=== PATIENT | female | born 1995 | race Caucasian/White ===

== ENCOUNTER 2023-03-10 22:52 | Emergency (ER) | payer SELFPAY ==
[~2023-03-10] VITALS: Ht 167.6 cm; Wt 72.7 kg
[2023-03-10 23:11] VITALS: BP 109/64; PULSE 124; RESP 20; O2SAT 96
[2023-03-10] MEDS ORDERED: IBUPROFEN 800 MG TAB PO ONE (23:15)
[2023-03-10 23:21] VITALS: TEMP 101.5
[2023-03-10 23:57] LABS: Rapid Influenza B Negative (Negative)
[2023-03-10 23:57] LABS: COVID19 ANTIGEN SOFIA FIA NEGATIVE (NEGATIVE)
[2023-03-11] LABS: Rapid Influenza A Positive (Negative)
== END 2023-03-11 02:31 | disposition left against medical advice (07) ==
LOC: ER 22:52
DX: R50.9 Fever, unspecified (principal); R05.9 Cough, unspecified; M79.10 Myalgia, unspecified site; Z20.822 Contact with and (suspected) exposure to COVID-19; Z53.21 Procedure and treatment not carried out due to patient leaving prior to being seen by health care provider
CPT/HCPCS: 36415; 87426; 87804

== ENCOUNTER 2024-03-08 23:22 | Emergency (ER) | payer SELFPAY ==
[~2024-03-08] VITALS: Ht 165.1 cm; Wt 86.6 kg
--- NOTE | 2024-03-09 00:10 | ED.PDOC ---
Back pain HPI Chief Complaint: Foreign Body Time Seen by MD: 23:31 Reviewed Notes: Nurses Notes, Medications, Allergies Allergies: Coded Allergies: NO KNOWN ALLERGIES (Unverified , 07/29/09) Information Source: Patient Mode of Arrival: Ambulatory Past Medical History PAST MEDICAL HISTORY: Denies Surgical History: Denies all surgeries COMPOUND WORKER History: No Pertinent COMPOUND WORKER History Family History Family History: Reviewed,noncontributory to illness Social History Smoker: Non-Smoker Alcohol: Denies ETOH Use Drugs: Denies Drug Use Constitutional: denies: chills, diaphoresis, fatigue, fever, malaise, sweats, weakness, others EENTM: denies: blurred vision, double vision, ear bleeding, ear discharge, ear drainage, ear pain, ear ringing, eye pain, eye redness, hearing loss, mouth pain, mouth swelling, nasal discharge, nose bleeding, nose congestion, nose pain, photophobia, tearing, throat pain, throat swelling, voice changes, others Respiratory: denies: cough, hemoptysis, orthopnea, SOB at rest, shortness of breath, SOB with excertion, stridor, wheezing, others Cardiovascular: denies: chest pain, dizzy spells, diaphoresis, Dyspnea on exertion, edema, irregular heart beat, left arm pain, lightheadedness, palpitations, PND, syncope, others Gastrointestinal: denies: abdomen distended, abdominal pain, blood streaked bowels, constipated, diarrhea, dysphagia, difficulty swallowing, hematemesis, melena, nausea, poor appetite, poor fluid intake, rectal bleeding, rectal pain, vomiting, others Genitourinary: denies: abnormal vagina bleeding, burning, dyspareunia, dysuria, flank pain, frequency, hematuria, incontinence, pain, , vagina discharge, urgency, others Neurological: denies: dizziness, fainting, headache, left sided numbness, left sided weakness, numbness, paresthesia, pre-existing deficit, right sided numbness, right sided weakness, seizure, speech problems, tingling, tremors, weakness, others Musculoskeletal: reports: others (Left ankle pain and foot); denies: back pain, gout, joint pain, joint swelling, muscle pain, muscle stiffness, neck pain Integumetry: denies: bruises, change in color, change in hair/nails, dryness, laceration, lesions, lumps, rash, wounds, others Allergic/Immunocompromised: denies: Difficulty Healing, Frequent Infections, Hives, Itching, others Hematologic/Lymphatic: denies: anemia, blood clots, easy bleeding, easy bruising, swollen glands, others Endocrine: denies: excessive hunger, excessive sweating, excessive thirst, excessive urination, flushing, intolerance to cold, intolerance to heat, unexplained weight gain, unexplained weight loss, others Psychiatric: denies: anxiety, bipolar disorder, depression, hopeless, panic disorder, schizophrenia, sleepless, suicidal, others Physical Exam General Appearance: No Apparent Distress, Normal HEENT: Pharynx Normal Neck: Full Range of Motion, Non-Tender Respiratory: Lungs Clear, No Respiratory Distress, Normal Breath Sounds Cardiovascular: No Murmur, Normal Peripheral Pulses, Regular Rate/Rhythm Breast Exam: Deferred Gastrointestinal: Non Tender, Soft Genitalia: Deferred Pelvic: Deferred Rectal: Deferred Extremities: Normal capillary refill, Normal inspection, Normal range of anival on, Non-tender, No pedal edema Musculoskeletal : Location: Left Extremity Location: Ankle (Mild tenderness on palpation over dorsum aspect of foot and ankle. Trace edema no noted obvious foreign body lesions lacerations or abrasions. Strength sensory motion intact positive pedal pulses) Apperance: Normal Neurologic: Alert, core sticker II-XII nml as Tested, No Motor Deficits, Normal Affect, Normal Mood, No Sensory Deficits Cerebellar Function: Normal Reflexes: Normal Skin: Dry, Normal Color, Warm Lymphatic: No Adenopathy Was a procedure done? Was a procedure done?: No Back Pain Differential Dx Differential Diagnosis: Fracture, Musculoskeletal Pain X-Ray, Labs, Meds, VS Vital Signs Date Time Temp Pulse Resp B/P (MAP) Pulse Ox O2 Delivery O2 Flow Rate FiO2 03/08/24 23:59 99.0 97 18 125/52 (76) 96 X-Ray, Labs, Meds, VS Comment Ankle x-ray and foot x-ray negative for acute fractures or foreign bodies. Time of 1ST Reevaluation: :18 Reevaluation 1ST: Improved Patient Education/Counseling: Diagnosis, Treatment, Prognosis, Need For Follow Up Family Education/Counseling: No Family Present Departure 1 Departure Time of Disposition: :18 Impression: Primary Impression: Ankle sprain Qualified Codes: S93.402A - Sprain of unspecified ligament of left ankle, initial encounter Disposition: HOME / SELF CARE / HOMELESS Condition: Stable Discharged With: Spouse Critical Care Note Critical Care Time?: No Stability Stability form required: WILFREDO Hicks Mar 09, 2024 00:09
--- NOTE | 2024-03-09 01:02 | DVH ---
XY L FOOT 3 VIEW XRAY, INDICATION: possible fb/injury TECHNICAL DATA: Multiple views of the left ankle and left foot. COMPARISON: None FINDINGS: No fracture is identified. Joint spaces are maintained. Alignment is anatomic. The hallux sesamoids a ppear normal. Soft tissues are within normal limits. IMPRESSION: No acute fracture or dislocation of the left foot.
[2024-03-09 02:45] VITALS: BP 132/67; PULSE 86; RESP 20; TEMP 98.4
[2024-03-09 03:04] VITALS: O2SAT 96
== END 2024-03-09 03:07 | disposition home or self-care (01) ==
LOC: ER 23:22
DX: S93.492A Sprain of other ligament of left ankle, initial encounter (principal); W45.8XXA Other foreign body or object entering through skin, initial encounter; Y93.89 Activity, other specified; Y92.89 Other specified places as the place of occurrence of the external cause; Y99.8 Other external cause status
CPT/HCPCS: 73610; 73630

== ENCOUNTER 2024-12-14 01:01 | Emergency (ER) | payer MEDICAID ==
[~2024-12-14] VITALS: Ht 165.1 cm; Wt 77.3 kg
--- NOTE | 2024-12-14 01:17 | ECG ---
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
--- NOTE | 2024-12-14 01:24 | ED.PDOC ---
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 Patient reports chest pain that started 2 days back, left-sided, pressure and sharp in nature, exacerbates with ambulation, pleuritic, constant for the past 2 days. She denies taking any OCPs or any medications at home. Denies nausea/diaphoresis/vomiting/abdominal or urinary symptoms. She has a history of pneumothorax after chest trauma 14 years back when she was 15-year-old Patient seen and examined, equal breath sounds bilaterally, in moderate distress secondary to pain. EKG unremarkable. Troponin wnl. Chief Complaint: Chest Pain Time Seen by MD: 01:04 Reviewed Notes: Nurses Notes Allergies: Coded Allergies: NO KNOWN ALLERGIES (Unverified , 07/29/09) Home Meds Active Scripts Cyclobenzaprine Hcl (Cyclobenzaprine Hcl) 10 Mg Tab, 10 MG PO TIDP PRN for 5 Days, #15 TAB 0 Refills Prov:NAOMY PELLETIER RESIDENT 12/14/24 Information Source: Patient, Friend Mode of Arrival: Ambulatory Past Medical History PAST MEDICAL HISTORY: Denies Past Medical History (Other): History of pneumothorax Surgical History: Denies all surgeries AMBULATORY NURSE History: No Pertinent AMBULATORY NURSE History Family History Family History: Reviewed,noncontributory to illness Social History Smoker: Non-Smoker Alcohol: Denies ETOH Use Drugs: Denies Drug Use Constitutional: denies: chills, diaphoresis, fatigue, fever, malaise, sweats, weakness, others EENTM: denies: blurred vision, double vision, ear bleeding, ear discharge, ear drainage, ear pain, ear ringing, eye pain, eye redness, hearing loss, mouth pain, mouth swelling, nasal discharge, nose bleeding, nose congestion, nose pain, photophobia, tearing, throat pain, throat swelling, voice changes, others Respiratory: denies: cough, hemoptysis, orthopnea, SOB at rest, shortness of breath, SOB with excertion, stridor, wheezing, others Cardiovascular: reports: chest pain Gastrointestinal: denies: abdomen distended, abdominal pain, blood streaked bowels, constipated, diarrhea, dysphagia, difficulty swallowing, hematemesis, melena, nausea, poor appetite, poor fluid intake, rectal bleeding, rectal pain, vomiting, others Genitourinary: denies: abnormal vagina bleeding, burning, dyspareunia, dysuria, flank pain, frequency, hematuria, incontinence, pain, , vagina disc harge, urgency, others Neurological: denies: dizziness, fainting, headache, left sided numbness, left sided weakness, numbness, paresthesia, pre-existing deficit, right sided numbness, right sided weakness, seizure, speech problems, tingling, tremors, weakness, others Musculoskeletal: denies: back pain, gout, joint pain, joint swelling, muscle pain, muscle stiffness, neck pain, others Integumetry: denies: bruises, change in color, change in hair/nails, dryness, laceration, lesions, lumps, rash, wounds, others Allergic/Immunocompromised: denies: Difficulty Healing, Frequent Infections, Hives, Itching, others Hematologic/Lymphatic: denies: anemia, blood clots, easy bleeding, easy bruising, swollen glands, others Endocrine: denies: excessive hunger, excessive sweating, excessive thirst, excessive urination, flushing, intolerance to cold, intolerance to heat, unexplained weight gain, unexplained weight loss, others Psychiatric: denies: anxiety, bipolar disorder, depression, hopeless, panic disorder, schizophrenia, sleepless, suicidal, others Physical Exam General Appearance: No Apparent Distress, Normal HEENT: Normal ENT Inspection, Pharynx Normal, TMs Normal Neck: Full Range of Motion, Non-Tender, Normal, Normal Inspection Respiratory: Chest Non-Tender, Lungs Clear, No Accessory Muscle Use, No Respiratory Distress, Normal Breath Sounds, Other (Equal breath sounds bilaterally) Cardiovascular: No Edema, No JVD, No Murmur, No Gallop, Normal Peripheral Pulses, Regular Rate/Rhythm Breast Exam: Deferred Gastrointestinal: No Organomegaly, Non Tender, No Pulsatile Mass, Normal Bowel Sounds, Soft Genitalia: Deferred Pelvic: Deferred Rectal: Deferred Extremities: No calf tenderness, Normal capillary refill, Normal inspection, Normal range of motion, Non-tender, No pedal edema Musculoskeletal : Apperance: Normal Neurologic: Alert, 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 Was a procedure done?: No CP Differential Dx Differential Diagnosis: MD, Sinus Tachycardia Other Differential Diagnosis ACS/musculoskeletal chest pain/pericarditis/PE/pneumothorax Differential Diagnosis: Chest Wall Pain, Costochondritis X-Ray, Labs, Meds, VS Vital Signs Date Time Temp Pulse Resp B/P (MAP) Pulse Ox O2 Delivery O2 Flow Rate FiO2 12/14/24 05:08 Room Air* 0 21 12/14/24 05:07 98.2 72 18 120/65 (83) 96 98.2 12/14/24 04:29 70 18 120/70 12/14/24 03:49 80 18 116/69 12/14/24 03:12 98.4 80 19 116/69 (85) 98 98.4 12/14/24 02:20 70 12/14/24 01:15 62 12/14/24 01:01 97.9 77 22 114/62 96 97.9 Lab Test 12/14/24 02:17 12/14/24 01:30 Range/Units Troponin I High Sensitivity < 3 L < 3 L </=34 ng/L White Blood Count 8.0 4.4-10.8 10^3/uL Red Blood Count 4.71 4.0-5.20 10^6/uL Hemoglobin 13.4 12.2-16.2 g/dL Hematocrit 39.7 36.0-46.0 % Mean Corpuscular Volume 84.3 80.0-100.0 fL Mean Corpuscular Hemoglobin 28.4 28.0-32.0 pg Mean Corpuscular Hemoglobin Concent 33.7 32.0-36.0 g/dL Red Cell Distribution Width 16.0 H 11.8-14.3 % Platelet Count 381 140-450 10^3/uL Mean Platelet Volume 7.2 6.9-10.8 fL Neutrophils (%) (Auto) 70.9 37.0-80.0 % Lymphocytes (%) (Auto) 18.6 10.0-50.0 % Monocytes (%) (Auto) 5.0 0.0-12.0 % Eosinophils (%) (Auto) 4.9 0.0-7.0 % Basophils (%) (Auto) 0.6 0.0-2.0 % Neutrophils # (Auto) 5.6 1.6-8.6 10 ^3/uL Lymphocytes # (Auto) 1.5 0.4-5.4 10 ^3/uL Monocytes # (Auto) 0.4 0-1.3 10 ^3/uL Eosinophils # (Auto) 0.4 0-0.8 10 ^3/uL Basophils # (Auto) 0 0-0.2 10 ^3/uL Nucleated Red Blood Cells 0.0 % Sodium Level 139 136-145 mmol/L Potassium Level 3.9 3.5-5.1 mmol/L Chloride Level 103 98-107 mmol/L Carbon Dioxide Level 26 20-31 mmol/L Anion Gap 10 5-15 Blood Urea Nitrogen 13 9-23 mg/dL Creatinine 0.93 0.550-1.02 mg/dL Glomerular Filtration Rate Calc 84 >90 mL/min BUN/Creatinine Ratio 14.0 10.0-20.0 Serum Glucose 108 H 74-106 mg/dL Calcium Level 9.3 8.7-10.4 mg/dL Time of 1ST Reevaluation: 01:40 Reevaluation 1ST: Improved Time of 2ND Reevaluation: 03:00 Reevaluation 2ND: Resolved Consultation: PCP Patient Education/Counseling: Diagnosis, Treatment, Need For Follow Up Family Education/Counseling: Diagnosis, Treatment, Need For Follow Up SEPSIS Sepsis Screen Date sepsis recognized/suspect: Dec 14, 2024 Time Sepsis recognized/suspect: 010 Recent Procedure: No On Antibiotic Therapy: No Respiratory Rate >20: No Heart Rate >90: No Temp<36 C (96.8 F) or >38.3 C: No SBP <90 or MAP <65 mmHG: No New Acute Mental Status Change: No Is the patient on CPAP, BIPAP,: No Physician Orders Electrocardigram (12/14/24 04:09) Chest Xray 1 View (12/14/24 01:23) Vital Signs Date Time Temp Pulse Resp B/P (MAP) Pulse Ox O2 Delivery O2 Flow Rate FiO2 12/14/24 05:08 Room Air* 0 21 12/14/24 05:07 98.2 72 18 120/65 (83) 96 98.2 12/14/24 04:29 70 18 120/70 12/14/24 03:49 80 18 116/69 12/14/24 03:12 98.4 80 19 116/69 (85) 98 98.4 12/14/24 02:20 70 12/14/24 01:15 62 12/14/24 01:01 97.9 77 22 114/62 96 97.9 Laboratory Tests Test 12/14/24 01:30 White Blood Count 8.0 10^3/uL (4.4-10.8) Departure 1 Departure Time of Disposition: 04:50 Impression: Primary Impression: Chest pain Additional Impression: Musculoskeletal chest pain Disposition: HOME / SELF CARE / HOMELESS Condition: Stable Additional Instructions: --follow up with primary care physician -tab cyclobenzaprine 10mg tid prn x5days -please return to the ER in case of worsening chest pain associated with nausea, shortness of breaths, diaphoresis e-Prescriptions Cyclobenzaprine Hcl (Cyclobenzaprine Hcl) 10 Mg Tab 10 MG PO TIDP PRN for 5 Days, #15 TAB 0 Refills Prov: NAOMY PELLETIER RESIDENT 12/14/24 Discharged With: Self Comments Attestation: I saw and evaluated the patient. I agree with the findings and plan of care as documented by the resident note. 29-year-old female with reproducible posterior thoracic chest pain. EKG negative for signs of ischemia. High sensitivity troponin negative. CXR shows no acute process. Presentation not suggestive of acute coronary syndrome, pulmonary embolism or aortic dissection. Patient improved at time of discharge. Patient has not been hypoxic, in respiratory distress or dyspneic during the ED observation. Patient able to ambulate without difficulty. Patient felt stable for discharge to follow up with PCP promptly. Patient advised to return to the ED with any new, worsening or concerning symptoms or inability to follow up with PCP. MONSTER WASHBURN MD Critical Care Note Critical Care Time?: No Stability Stability form required: No Heart Score Heart Score: Heart Score Response (Comments) Value History Slightly Suspicious 0 EKG Normal 0 Age <45 0 Risk Factors 1 or 2 risk factors 1 Troponin Normal limit 0 Total 1 NAOMY PELLETIER RESIDENT Dec 14, 2024 01:24 MONSTER WASHBURN MD Dec 16, 2024 04:09
[2024-12-14 01:39] LABS: Hematocrit 39.7 % (36.0-46.0); Hemoglobin 13.4 g/dL (12.2-16.2); Mean Corpuscular Hemoglobin 28.4 pg (28.0-32.0); Mean Corpuscular Volume 84.3 fL (80.0-100.0); Nucleated Red Blood Cells % 0.0 %
[2024-12-14 01:44] LABS: Chloride 103 mmol/L (98-107); Potassium 3.9 mmol/L (3.5-5.1); Sodium 139 mmol/L (136-145)
[2024-12-14 01:45] LABS: Anion Gap 10 (5-15); Calcium 9.3 mg/dL (8.7-10.4); Carbon Dioxide 26 mmol/L (20-31)
[2024-12-14 01:50] LABS: BUN/Creatinine Ratio 14.0 (10.0-20.0); Blood Urea Nitrogen 13 mg/dL (9-23); Glucose 108 mg/dL (74-106)
--- NOTE | 2024-12-14 02:22 | DVH ---
CHEST RADIOGRAPH Indication: sob sudden, hx of pneumo Technique: Single frontal view of the chest was obtained COMPARISON: None FINDINGS: Lines and Tubes: None Lungs: Clear Pleura: No effusion. No pneumothorax. Cardiomediastinal contours: Unremarkable Bones: Unremarkable IMPRESSION: 1. No acute disease.
[2024-12-14] MEDS: KETOROLAC TROMETH 30 MG/ML 1ML VIAL IM ONE (03:48)
[2024-12-14] MEDS: CYCLOBENZAPRINE HCL 10 MG TAB PO ONE (03:48)
[2024-12-14] MEDS: MORPHINE SULFATE INJ 2 MG/ml SYRG IM ONE (03:49)
[2024-12-14] MEDS ORDERED: CYCL-839 PO (04:55)
[2024-12-14 05:07] VITALS: BP 120/65; PULSE 72; RESP 18; TEMP 98.2; O2SAT 96
--- NOTE | 2024-12-14 05:11 | ECG ---
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
== END 2024-12-14 04:47 | disposition home or self-care (01) ==
LOC: ER 01:01
DX: R07.89 Other chest pain (principal)
CPT/HCPCS: 36415; 71045; 80048; 84484; 85025; 93005; 96372; 99285; J1885; J2270